=== PATIENT | male | born 1960 | race American Indian/Alaskan Native ===

== ENCOUNTER 2019-08-25 18:37 | Emergency (ER) | payer OTHER ==
--- NOTE | 2019-08-25 18:41 | EDM.PDOC ---
ED HPI GENERAL MEDICAL PROBLEM - General Chief Complaint: Upper Extremity Injury/Pain Stated Complaint: POSS BROKEN LEFT WRIST Time Seen by Provider: 08/25/19 18:38 Source of Information: Reports: Patient History Limitations: Reports: No Limitations - History of Present Illness INITIAL COMMENTS - FREE TEXT/NARRATIVE: HISTORY AND PHYSICAL: History of present illness: Patient is a 58-year-old male who presents to the emergency room with complaints of left wrist pain. 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 He states he did hit the underside of his jaw on the scaffolding and landed on the outstretched left hand. He denies any loss of consciousness. After the fall he continued to work for approximately 3 more hours before coming into the emergency room. He states that the left wrist was seen only thing of concern to him at this time as he has pain with flexion, extension and grasping. Patient denies any fever, chills , headache, change in vision, syncope or near syncope. Denies any chest pain, back pain, shortness of breath or cough. Denies any abdominal pain, nausea, vomiting, diarrhea, constipation or dysuria. Denies any urinary or fecal incontinence. Denies any weakness, numbness, tingling or saddle paresthesias. Has not noted any blood in urine or stool. Patient has been eating and drinking appropriately. Does not take any aspirins or blood thinners Review of systems: As per history of present illness and below otherwise all systems reviewed and negative. Past medical history: As per history of present illness and as reviewed below otherwise noncontributory. Surgical history: As per history of present illness and as reviewed below otherwise noncontributory. Social history: See social history for further information Family history: As per history of present illness and as reviewed below otherwise noncontributory. Physical exam: General: Well-developed and well-nourished 58-year-old male. Alert and oriented. Nontoxic appearing and in no acute distress. HEENT: Nontender with palpation, no crepitus, normocephalic, pupils equal and reactive bilaterally, negative for conjunctival pallor or scleral icterus, mucous membranes moist, TMs normal bilaterally, throat clear, neck supple, nontender, trachea midline. No drooling or trismus noted. No meningeal signs. No hot potato voice noted. Lungs: Clear to auscultation, breath sounds equal bilaterally, chest nontender. Heart: S1S2, regular rate and rhythm without overt murmur Abdomen: Soft, nondistended, nontender. Negative for masses or hepatosplenomegaly. Negative for costovertebral tenderness. Pelvis: Stable nontender. Skin: Intact, warm, dry. No lesions or rashes noted. C-spine/Back: No pinpoint vertebral tenderness upon palpation. No crepitus, step -offs or obvious deformities. Patient is ambulatory into the emergency room without difficulty or deficit. Able to rock back on heels and walk on toes. Denies any urinary or fecal incontinence. Denies any numbness, tingling or saddle paresthesia. Extremities: Pain with palpation of the left wrist on the radial aspect. Limited flexion and extension and grasping due to pain. Strong radial pulse. Capillary refill less than 3 seconds. He otherwise moves all other extremities per self without difficulty or deficits, without any pain during examination/ palpation. Neurovascular unremarkable. Neuro: Awake, alert, oriented. Cranial nerves II through XII unremarkable. Cerebellum unremarkable. Motor and sensory unremarkable throughout. Exam nonfocal. Notes: Patient denies any other extremity pain. He declines wanting a head CT regardless of education. X-ray shows a comminuted intra-articular fracture of the distal radius. On the lateral exam there is a small osseous fragment measuring 3 mm which may be yielded from the dorsal aspect of the metacarpal bone. Patient has a strong radial pulse with good capillary refill. A fiberglass splint was applied and sling. Education was done on the need for close follow-up with the orthopedic provider in the next 1-2 days. Medication and supportive care measures were reviewed and discussed. Voices understanding and is agreeable to plan of care. Denies any further questions or concerns at this time. Diagnostics: Left Wrist Injury Therapeutics: LawndaleRenetta Prescription: La[place] Impression: Distal radial fracture Plan: 1. Rest, ice, elevate the affected extremity. Please wear the splint as directed. 2. Tylenol and/or Ibuprofen as needed for pain management. 3. Follow up with the Orthopedic provider as we discussed. Return to the ED as needed and as discussed. Definitive disposition and diagnosis as appropriate pending reevaluation and review of above. Left Wrist Pain Score (Numeric/FACES): 10 - Related Data Allergies Allergy/AdvReac Type Severity Reaction Status Date / Time No Known Allergies Allergy Verified 08/25/19 18:41 Home Meds: Home Meds . [No Known Home Meds] 11/15/14 [History] Past Medical History - Past Health History Medical/Surgical History: Denies Medical/Surgical History Review of Systems - Review of Systems Review Of Systems: ROS reveals no pertinent complaints other than HPI. ED EXAM, GENERAL - Physical Exam Exam: See Below (See dictation) Course - Vital Signs Last Recorded V/S: Last Vital Signs Temp 96.1 F 08/25/19 18:38 Pulse 74 08/25/19 18:38 Resp 18 08/25/19 18:38 BP 152/88 H 08/25/19 18:38 Pulse Ox 97 08/25/19 18:38 - Orders/Labs/Meds Orders: Active Orders 24 hr Category Date Time Status DME for Discharge [COMM] Stat Oth 08/25/19 18:56 Ordered Meds: Medications Discontinued Medications Generic Name Dose Route Start Last Admin Trade Name Jeffrey PRN Reason Stop Dose Admin Hydrocodone Bitart/Acetaminophen 1 tab 08/25/19 18:47 08/25/19 18:54 La[place]dale 325-5 Mg PO 08/25/19 18:48 1 tab ONETIME ONE Administration Ondansetron HCl 4 mg 08/25/19 18:47 08/25/19 18:55 Zofran Odt PO 08/25/19 18:48 4 mg ONETIME ONE Administration Departure - Departure Time of Disposition: 19:27 Disposition: Home, Self-Care 01 Clinical Impression: Distal radius fracture, left Qualifiers: Encounter type: initial encounter Fracture type: closed Fracture morphology: other intra-articular Qualified Code(s): S52.572A - Other intraarticular fracture of lower end of left radius, initial encounter for closed fracture Fall Qualifiers: Encounter type: initial encounter Qualified Code(s): W19.XXXA - Unspecified fall, initial encounter - Discharge Information Instructions: Wrist Fracture Treated With Immobilization Referrals: PCP,None [Primary Care Provider] - Forms: ED Department Discharge Additional Instructions: The following information is given to patients seen in the emergency department who are being discharged to home. This information is to outline your options for follow-up care. We provide all patients seen in our emergency department with a follow-up referral. The need for follow-up, as well as the timing and circumstances, are variable depending upon the specifics of your emergency department visit. If you don't have a primary care physician on staff, we will provide you with a referral. We always advise you to contact your personal physician following an emergency department visit to inform them of the circumstance of the visit and for follow-up with them and/or the need for any referrals to a consulting specialist. The emergency department will also refer you to a specialist when appropriate. This referral assures that you have the opportunity for follow-up care with a specialist. All of these measure are taken in an effort to provide you with optimal care, which includes your follow-up. Under all circumstances we always encourage you to contact your private physician who remains a resource for coordinating your care. When calling for follow-up care, please make the office aware that this follow-up is from your recent emergency room visit. If for any reason you are refused follow-up, please contact the [facility] Emergency Department at and asked to speak to the emergency department charge nurse. [facility] Special[facility] - Orthopedic Clinic Professional [facility] [address] [place] [address], [address] [place] [address] Dr Bradley, Orthopedist [facility] [address] [place] [address] Orthopedics at [facility] [address] [place] [address] [facility] [address] [place] [address] 1. Rest, ice, elevate the affected extremity. Please wear the splint as directed. 2. Tylenol and/or Ibuprofen as needed for pain management. 3. Follow up with the Orthopedic provider as we discussed, please call in the morning to set up an appointment. 4. Return to the ED as needed and as discussed. - My Orders Last 24 Hours: My Active Orders 08/25/19 18:56 DME for Discharge [COMM] Stat - Assessment/Plan Last 24 Hours: My Active Orders 08/25/19 18:56 DME for Discharge [COMM] Stat
[2019-08-25 18:43] VITALS: BP 152/88; PULSE 74
[2019-08-25] MEDS ORDERED: Ondansetron 4 MG Tab.DIS PO ONE (18:47)
[2019-08-25] MEDS ORDERED: Acetaminophen/HYDROcodone 325-5 MG Tab PO ONE (18:47)
--- NOTE | 2019-08-25 19:18 | CR ---
INDICATION: Wrist injury from fall today TECHNIQUE: Wrist radiograph 3 views left COMPARISON: None FINDINGS: Bone: There is a comminuted intra-articular fracture of the distal radius noted. On the lateral exam, small osseous fragment is present measuring 3 mm which may been yielded from the dorsal aspect of 1 of the carpal bones. Joint: The radiocarpal, carpal, and carpometacarpal joints are unremarkable in appearance. Soft tissue: Unremarkable. No radiopaque foreign bodies are seen. IMPRESSIONS: 1. There is a comminuted intra-articular fracture of the distal radius noted. 2. On the lateral exam, small osseous fragment is present measuring 3 mm which may been yielded from the dorsal aspect of 1 of the carpal bones. Dictated by Jose Guadalupe Tiwari MD @ 08/25/2019 7:10:47 PM Dictated by: Jose Guadalupe Tiwari MD @ 08/25/2019 19:16:01 (Electronically Signed)
== END 2019-08-25 19:45 | disposition home or self-care (01) ==
LOC: MW.ED 18:37
DX: S52.552A Other extraarticular fracture of lower end of left radius, initial encounter for closed fracture (principal); W17.89XA Other fall from one level to another, initial encounter; Y92.009 Unspecified place in unspecified non-institutional (private) residence as the place of occurrence of the external cause; Y93.89 Activity, other specified
CPT/HCPCS: 29125; 73110; 99283; A9270

== ENCOUNTER 2022-11-10 15:04 | Emergency (ER) | payer OTHER ==
[2022-11-10 15:22] VITALS: BP 131/95; PULSE 79
== END 2022-11-10 15:35 | disposition home or self-care (01) ==
LOC: MW.ED 15:04
DX: Z02.89 Encounter for other administrative examinations (principal)
CPT/HCPCS: 99283

== ENCOUNTER 2023-12-25 22:54 | Emergency (ER) | payer SELFPAY ==
[2023-12-26 06:12] VITALS: BP 120/79; PULSE 62
== END 2023-12-26 03:17 ==
LOC: MW.ED 22:54
DX: I10 Essential (primary) hypertension (principal); J44.9 Chronic obstructive pulmonary disease, unspecified; Z90.49 Acquired absence of other specified parts of digestive tract; Z79.899 Other long term (current) drug therapy
CPT/HCPCS: 82947; 99283

== ENCOUNTER 2024-09-07 13:29 | Inpatient (IN) | payer SELFPAY ==
[2024-09-07] MEDS ORDERED: Sodium Chloride 0.9% 10 ML Syringe FLUSH PRN (13:38)
[2024-09-07] MEDS ORDERED: Sodium Chloride 0.9% 2.5 ML Syringe FLUSH PRN (13:38)
[2024-09-07 13:57] LABS: BASOPHILS ABSOLUTE AUTO 0.03 K/uL (0.00-0.20); BASOPHILS PERCENT AUTO 0.3 % (0.0-1.0); EOSINOPHILS ABSOLUTE AUTO 0.01 K/uL (0.00-0.45); EOSINOPHILS PERCENT AUTO 0.1 % (0.0-6.0); HEMATOCRIT 42.5 % (42.0-52.0); HEMOGLOBIN 14.1 g/dL (14.0-18.0); IMMATURE GRAN ABSOLUTE AUTO 0.03 K/uL (0.00-0.05); IMMATURE GRAN PERCENT AUTO 0.3 % (0.0-0.4); LYMPHOCYTES ABSOLUTE AUTO 1.07 K/uL (1.00-4.80); LYMPHOCYTES PERCENT AUTO 10.3 % (24.0-44.0); MEAN CORPUSCULAR HEMOGLOBIN 29.1 pg (28.0-32.0); MEAN CORPUSCULAR HGB CONC 33.2 g/dL (32.0-36.0); MEAN CORPUSCULAR VOLUME 87.8 fL (83.0-99.0); MEAN PLATELET VOLUME 11.6 fL (9.4-12.4); MONOCYTES ABSOLUTE AUTO 1.18 K/uL (0.00-0.80); MONOCYTES PERCENT AUTO 11.3 % (0.0-8.0); NEUTROPHILS ABSOLUTE AUTO 8.08 K/uL (1.80-7.70); NEUTROPHILS PERCENT AUTO 77.7 % (41.0-71.0); PLATELET COUNT,PLT 185 K/uL (150-400); RED BLOOD CELL COUNT 4.84 M/uL (4.52-5.90)
[2024-09-07] MEDS: methylPREDNISolone Sodium Succinate 125 MG/2 ML SDV IVPUSH ONE (13:58)
[2024-09-07] MEDS: Albuterol/Ipratropium 3.0-0.5 MG/3 ML Neb Soln NEB ONE (14:04)
[2024-09-07 14:29] LABS: A/G RATIO 0.9 (0.9-1.6); ALBUMIN 3.6 g/dL (3.4-5.0); BILIRUBIN TOTAL 0.4 mg/dL (0.2-1.0); CALCIUM 9.6 mg/dL (8.5-10.1); CARBON DIOXIDE,CO2 30.6 mmol/L (21.0-32.0); CREATININE 1.5 mg/dL (0.8-1.3); EST CRCL DRUG DOSING (CG) 40.11 mL/min; POTASSIUM,K 4.2 mmol/L (3.5-5.1); PROTEIN TOTAL,TP 7.5 g/dL (6.4-8.2)
[2024-09-07] MEDS: Albuterol 0.083% 2.5 MG/3 ML Neb Soln NEB ONE (14:39)
[2024-09-07] MEDS: cefTRIAXone 1 GM in Sodium Chloride 0.9% 50 ML IV ONE (15:21)
[2024-09-07] MEDS ORDERED: Polyethylene Glycol 3350 Powder 17 GM Packet PO PRN (17:30)
[2024-09-07] MEDS ORDERED: Acetaminophen 325 MG Tab PO PRN (17:30)
[2024-09-07] MEDS ORDERED: Ondansetron 4 MG Tab.DIS PO PRN (17:30)
[2024-09-07] MEDS ORDERED: Benzonatate 100 MG Cap PO PRN (18:20)
[2024-09-07] MEDS: Pantoprazole 40 MG Tab.CR PO SCH (18:27)
[2024-09-07] MEDS: Albuterol/Ipratropium 3.0-0.5 MG/3 ML Neb Soln NEB SCH (18:27)
[2024-09-07] MEDS: Sodium Chloride 0.9% 1,000 ML IV ONE (18:43)
[2024-09-07 22:45] LABS: CORONAVIRUS COVID-19 NAA NEGATIVE (NEGATIVE); INFLUENZA A NAA NEGATIVE (NEGATIVE); INFLUENZA B NAA NEGATIVE (NEGATIVE); RESPIRATORY SYNCYTIAL VIR NAA NEGATIVE (NEGATIVE)
[2024-09-08 05:28] LABS: HEMATOCRIT 37.8 % (42.0-52.0); HEMOGLOBIN 12.4 g/dL (14.0-18.0); IMMATURE GRAN ABSOLUTE AUTO 0.02 K/uL (0.00-0.05); IMMATURE GRAN PERCENT AUTO 0.3 % (0.0-0.4); LYMPHOCYTES ABSOLUTE AUTO 0.54 K/uL (1.00-4.80); MEAN CORPUSCULAR HEMOGLOBIN 28.8 pg (28.0-32.0); MEAN CORPUSCULAR HGB CONC 32.8 g/dL (32.0-36.0); MEAN CORPUSCULAR VOLUME 87.7 fL (83.0-99.0); MEAN PLATELET VOLUME 11.5 fL (9.4-12.4); MONOCYTES ABSOLUTE AUTO 0.39 K/uL (0.00-0.80); MONOCYTES PERCENT AUTO 5.8 % (0.0-8.0); NEUTROPHILS ABSOLUTE AUTO 5.78 K/uL (1.80-7.70); NEUTROPHILS PERCENT AUTO 85.9 % (41.0-71.0); PLATELET COUNT,PLT 181 K/uL (150-400); RED BLOOD CELL COUNT 4.31 M/uL (4.52-5.90); WHITE BLOOD CELL COUNT,WBC 6.73 K/uL (3.9-11.3)
[2024-09-08 06:09] LABS: A/G RATIO 0.8 (0.9-1.6); ALBUMIN 2.8 g/dL (3.4-5.0); BILIRUBIN TOTAL 0.2 mg/dL (0.2-1.0); CALCIUM 8.6 mg/dL (8.5-10.1); CARBON DIOXIDE,CO2 26.4 mmol/L (21.0-32.0); CREATININE 1.2 mg/dL (0.8-1.3); EST CRCL DRUG DOSING (CG) 48.82 mL/min; POTASSIUM,K 4.7 mmol/L (3.5-5.1); PROTEIN TOTAL,TP 6.5 g/dL (6.4-8.2)
[2024-09-08] MEDS ORDERED: methylPREDNISolone Sod Succ 40 MG in Sodium Chloride 0.9% 100 ML IV SCH (09:00)
[2024-09-08] MEDS: methylPREDNISolone Sodium Succinate 40 MG/1 ML SDV IVPUSH SCH (13:59)
[2024-09-08] MEDS: cefTRIAXone 1 GM in Sodium Chloride 0.9% 50 ML IV SCH (14:01)
[2024-09-09 05:37] LABS: BASOPHILS ABSOLUTE AUTO 0.01 K/uL (0.00-0.20); BASOPHILS PERCENT AUTO 0.1 % (0.0-1.0); HEMATOCRIT 36.6 % (42.0-52.0); HEMOGLOBIN 11.9 g/dL (14.0-18.0); IMMATURE GRAN ABSOLUTE AUTO 0.03 K/uL (0.00-0.05); IMMATURE GRAN PERCENT AUTO 0.3 % (0.0-0.4); LYMPHOCYTES ABSOLUTE AUTO 0.87 K/uL (1.00-4.80); LYMPHOCYTES PERCENT AUTO 8.6 % (24.0-44.0); MEAN CORPUSCULAR HEMOGLOBIN 28.7 pg (28.0-32.0); MEAN CORPUSCULAR HGB CONC 32.5 g/dL (32.0-36.0); MEAN CORPUSCULAR VOLUME 88.4 fL (83.0-99.0); MEAN PLATELET VOLUME 11.8 fL (9.4-12.4); MONOCYTES ABSOLUTE AUTO 0.72 K/uL (0.00-0.80); MONOCYTES PERCENT AUTO 7.1 % (0.0-8.0); NEUTROPHILS ABSOLUTE AUTO 8.52 K/uL (1.80-7.70); NEUTROPHILS PERCENT AUTO 83.9 % (41.0-71.0); PLATELET COUNT,PLT 208 K/uL (150-400); RED BLOOD CELL COUNT 4.14 M/uL (4.52-5.90); WHITE BLOOD CELL COUNT,WBC 10.15 K/uL (3.9-11.3)
[2024-09-09 06:02] LABS: ALBUMIN 2.8 g/dL (3.4-5.0); BILIRUBIN TOTAL 0.2 mg/dL (0.2-1.0); CALCIUM 8.6 mg/dL (8.5-10.1); CARBON DIOXIDE,CO2 25.9 mmol/L (21.0-32.0); CREATININE 1.2 mg/dL (0.8-1.3); EST CRCL DRUG DOSING (CG) 48.82 mL/min; POTASSIUM,K 4.4 mmol/L (3.5-5.1); PROTEIN TOTAL,TP 6.1 g/dL (6.4-8.2)
[2024-09-09 06:16] LABS: A/G RATIO 0.9 (0.9-1.6)
[2024-09-09 12:42] VITALS: BP 116/82; PULSE 86
== END 2024-09-09 13:12 | disposition home or self-care (01) | DRG 192 ==
LOC: MW.ED 13:29 → MW.MS 16:03
PROVIDERS: ADMIT Internal Medicine; ATTEND Internal Medicine
DX: J44.1 Chronic obstructive pulmonary disease with (acute) exacerbation (principal); I10 Essential (primary) hypertension; R73.03 Prediabetes; F17.210 Nicotine dependence, cigarettes, uncomplicated; Z79.84 Long term (current) use of oral hypoglycemic drugs; Z90.89 Acquired absence of other organs; Z79.52 Long term (current) use of systemic steroids; Z79.899 Other long term (current) drug therapy
CPT/HCPCS: 0241U; 36415; 70450; 70450-26; 71045; 71045-26; 80053; 82947; 83880; 84484; 85025; 93005; 93010; 94640; 99222; 99232; 99239; 99284; 99291; A9270-GY; J0696; J2919; J3490; J7030; J7620-GY

== ENCOUNTER 2025-10-13 19:55 | Emergency (ER) | payer MEDICARE, MEDICAID, OTHER ==
[2025-10-13] MEDS ORDERED: Sodium Chloride 0.9% 10 ML Syringe FLUSH PRN (19:59)
[2025-10-13] MEDS ORDERED: Sodium Chloride 0.9% 2.5 ML Syringe FLUSH PRN (19:59)
[2025-10-13 20:07] LABS: BASOPHILS ABSOLUTE AUTO 0.03 K/uL (0.00-0.20); BASOPHILS PERCENT AUTO 0.4 % (0.0-1.0); EOSINOPHILS ABSOLUTE AUTO 0.08 K/uL (0.00-0.45); EOSINOPHILS PERCENT AUTO 1.0 % (0.0-6.0); IMMATURE GRAN ABSOLUTE AUTO 0.03 K/uL (0.00-0.05); IMMATURE GRAN PERCENT AUTO 0.4 % (0.0-0.4); LYMPHOCYTES ABSOLUTE AUTO 1.97 K/uL (1.00-4.80); LYMPHOCYTES PERCENT AUTO 24.9 % (24.0-44.0); MEAN PLATELET VOLUME 11.9 fL (9.4-12.4); MONOCYTES ABSOLUTE AUTO 1.03 K/uL (0.00-0.80); MONOCYTES PERCENT AUTO 13.0 % (0.0-8.0); NEUTROPHILS ABSOLUTE AUTO 4.76 K/uL (1.80-7.70); NEUTROPHILS PERCENT AUTO 60.3 % (41.0-71.0); NRBC ABSOLUTE 0.00 K/uL (0.00-0.02); NRBC PERCENT 0.0 /100WBC (0.0-0.2); PLATELET COUNT,PLT 240 K/uL (150-400); RED BLOOD CELL COUNT 4.17 M/uL (4.52-5.90); WHITE BLOOD CELL COUNT,WBC 7.90 K/uL (3.9-11.3)
[2025-10-13 20:10] LABS: BASE EXCESS VENOUS 2.9 (-2.0-3.0); BICARBONATE,VENOUS 26.0 mEq/L (22-29); PCO2 VENOUS 34.0 mmHG (41-51); PH,VENOUS 7.49 (7.32-7.43); PO2 VENOUS 66.0 mmHG (35-45)
[2025-10-13] MEDS: Dexamethasone Sod Phos Preservative Free 10 MG/ML Vial IVPUSH ONE (20:10)
[2025-10-13] MEDS: Magnesium Sulfate 2 GM/50 mL 2 GM in Premix Bag 1 BAG IV ONE (20:18)
[2025-10-13 20:41] LABS: A/G RATIO 0.8 (0.9-1.6); ALANINE AMINOTRANSFERASE,ALT 29 IU/L (14-63); ASPARTATE AMNIOTRANSFERASE,AST 32 IU/L (15-37); BILIRUBIN TOTAL 0.3 mg/dL (0.2-1.0); BLOOD UREA NITROGEN,BUN 29 mg/dL (7.0-18.0); CARBON DIOXIDE,CO2 25.0 mmol/L (21.0-32.0); CHLORIDE,CL 106 mmol/L (98-107); CREATININE 1.5 mg/dL (0.8-1.3); ESTIMATED GFR 51 mL/min (>60); GLUCOSE RANDOM 99 mg/dL (74-106); POTASSIUM,K 5.5 mmol/L (3.5-5.1); PROTEIN TOTAL,TP 7.0 g/dL (6.4-8.2); SODIUM,NA 140 mmol/L (136-148)
[2025-10-13 21:17] VITALS: BP 112/65; PULSE 61
== END 2025-10-13 23:08 ==
LOC: MW.ED 19:55
DX: J44.1 Chronic obstructive pulmonary disease with (acute) exacerbation (principal); I10 Essential (primary) hypertension; Z79.84 Long term (current) use of oral hypoglycemic drugs; Z79.899 Other long term (current) drug therapy
CPT/HCPCS: 36415; 71045; 80053; 82803; 84484; 85025; 93005; 96374; 96375; 99285; A9270; J1100; J3475